=== PATIENT | female | born 1960 | race American Indian/Alaskan Native ===

== ENCOUNTER 2022-01-04 12:42 | Emergency (ER) | payer OTHER ==
[2022-01-04 13:31] VITALS: BP 108/63
[2022-01-04] MEDS ORDERED: fentaNYL 100 MCG/2 ML INJ IV ONE (13:52)
[2022-01-04] MEDS ORDERED: ONDANSETRON 4 MG/2 ML INJ IM ONE (13:53)
[2022-01-04] MEDS ORDERED: fentaNYL 100 MCG/2 ML INJ IM ONE (13:54)
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
== END 2022-01-04 16:55 | disposition home or self-care (01) ==
LOC: ED 12:42
DX: S80.12XA Contusion of left lower leg, initial encounter (principal); S20.219A Contusion of unspecified front wall of thorax, initial encounter; S16.1XXA Strain of muscle, fascia and tendon at neck level, initial encounter; S09.90XA Unspecified injury of head, initial encounter; I10 Essential (primary) hypertension; E11.9 Type 2 diabetes mellitus without complications; J45.909 Unspecified asthma, uncomplicated; Z85.9 Personal history of malignant neoplasm, unspecified; Z98.890 Other specified postprocedural states; V89.2XXA Person injured in unspecified motor-vehicle accident, traffic, initial encounter; Y93.89 Activity, other specified; Y92.89 Other specified places as the place of occurrence of the external cause; Y99.8 Other external cause status
CPT/HCPCS: 70450; 71101; 72072; 72100; 72125; 73552; 73590; 96372; 99284; J2405; J3010